=== PATIENT | male | born 1970 | race African-American/Black ===

== ENCOUNTER 2018-02-09 22:32 | Emergency (ER) | payer BC ==
[2018-02-09] MEDS ORDERED: Magnesium Sulfate 2 GM/NS 0.9% 50 ML BAG ONE (23:02)
[2018-02-09 23:51] LABS: Hemoglobin 15.2 g/dL (14.0-18.0); Mean Corpuscular HGB CONC 34.8 g/dL (32.0-36.0); Mean Corpuscular Hemoglobin 29.2 pg (27.0-31.0); Mean Corpuscular Volume 84.1 fL (78.0-98.0); Mean Platelet Volume 8.6 fL (7.4-10.4); Platelet Count 245 thou/uL (130-400); RBC Distribution Width 12.2 % (11.5-14.5); Red Blood Cell (RBC) Count 5.22 mill/uL (4.70-6.10); White Blood Cell (WBC) Count 4.2 thou/uL (4.8-10.8)
[2018-02-10] LABS: Band 1 % (5-11); Eosinophils 5 % (0-10); Lymphocytes 65 % (21-51); MDiff Complete? YES; Monocytes 4 % (0-10); Neutrophil 24 % (42-75)
[2018-02-10 00:39] LABS: Bilirubin Negative (Negative); Blood, Urine Negative (Negative); Clarity Clear (Clear); Glucose, Urine (Dipstick) Negative (Negative); Leukocyte Negative (Negative); Nitrite Negative (Negative); Protein, Urine (Dipstick) Negative (Neg-Trace); Urobilinogen 0.2 mg/dL (0.2-1.0); pH, Urine 6.5 (5.0-9.0)
== END 2018-02-10 01:05 | disposition home or self-care (01) ==
LOC: SCSER 22:32
DX: M62.82 Rhabdomyolysis (principal); I10 Essential (primary) hypertension; Z79.899 Other long term (current) drug therapy
CPT/HCPCS: 81003; 82550; 82565; 84520; 85025; 96365; J3475

== ENCOUNTER 2019-09-10 23:35 | Emergency (ER) | payer BC, OTHER ==
[2019-09-11 00:21] LABS: Hemoglobin 13.8 g/dL (14.0-18.0); Mean Corpuscular HGB CONC 31.9 g/dL (32.0-36.0); Mean Corpuscular Hemoglobin 28.8 pg (27.0-31.0); Mean Corpuscular Volume 90.2 fL (78.0-98.0); Mean Platelet Volume 8.2 fL (7.4-10.4); Platelet Count 290 thou/uL (130-400); RBC Distribution Width 13.4 % (11.5-14.5); Red Blood Cell (RBC) Count 4.78 mill/uL (4.70-6.10); White Blood Cell (WBC) Count 3.7 thou/uL (4.8-10.8)
[2019-09-11 00:35] LABS: ALT (SGPT) 43 U/L (8-55); AST (SGOT) 29 U/L (5-34); Albumin 4.2 g/dL (3.5-5.0); Alkaline Phosphatase 73 U/L (40-110); Anion Gap 9 mmol/L (10-20); BUN (Urea Nitrogen) 10 mg/dL (8.9-20.6); Bilirubin, Total 0.3 mg/dL (0.2-1.2); Calc. Creatinine Clearance 0 mL/min (70-130); Calcium 9.5 mg/dL (7.8-10.44); Carbon Dioxide 30 mmol/L (22-29); Chloride 103 mmol/L (98-107); Estimated GFR-MDRD 85; Globulin 3.4 g/dL (2.4-3.5); Glucose 133 mg/dL (70-105); Lipase 88 U/L (8-78); Potassium 3.9 mmol/L (3.5-5.1); Protein, Total 7.6 g/dL (6.0-8.3); Sodium 138 mmol/L (136-145)
[2019-09-11 00:38] LABS: Eosinophils 3 % (0-10); Lymphocytes 62 % (21-51); MDiff Complete? YES; Monocytes 5 % (0-10); Neutrophil 30 % (42-75); Platelet Morphology Comment Appears Adequate
[2019-09-11] MEDS ORDERED: Ketorolac Tromethamine 30 MG/ML VIAL ONE (01:10)
[2019-09-11] MEDS ORDERED: Dicyclomine 20 MG TAB ONE (01:20)
[2019-09-11] MEDS ORDERED: Dicyclomine 20 MG TAB PO SCH (01:30)
[2019-09-11 02:02] LABS: Bilirubin Negative (Negative); Blood, Urine Negative (Negative); Clarity Clear (Clear); Glucose, Urine (Dipstick) Normal (Negative); Leukocyte Negative Leu/uL (Negative); Nitrite Negative (Negative); Protein, Urine (Dipstick) Negative (Neg-Trace); Urobilinogen Normal mg/dL (Less than 2)
--- NOTE | 2019-09-11 07:40 | CT ---
PRELIMINARY REPORT/[facility]/EMERGENCY AFTER HOURS PROCEDURE: PROCEDURE: CT Scan Abdomen and Pelvis with IV Contrast Material. HISTORY: RIGHT lower quadrant pain. TECHNIQUE: Axial images were performed with multiplanar reconstructions. The patient was given iodin ated contrast intravenously. The patient was not given oral contrast material. COMPARISONS: None . FINDINGS: Clear lung bases. Liver, spleen, adrenals, pancreas show no abnormality. Kidneys show no obstruction or masses. There has been previous cholecystectomy with normal sized biliary tree. No abdominal ascites or pneumoperitoneum. Normal aorta. Mild RIGHT lower quadrant mesenteric lymphaden opathy to 1.6 cm. No bowel obstruction or inflammation and normal appendix RIGHT lower quadrant. Pelvis shows no masses or fluid with normal urinary bladder. No acute bony abnormality. 3 cm lipoma involving external obliquely muscle on the LEFT. IMPRESSION: Normal appendix RIGHT lower quadrant. Mild RIGHT lower quadrant mesenteric lymphadenopathy may represent lymphadenitis. No other significant abnormality identified ELECTRONICALLY SIGNED BY: Noel Morales MD Sep 11, 2019 2:28:18 AM CDT FINAL REPORT EXAM: CT ABDOMEN AND PELVIS HISTORY: Abdominal pain. Pain is sharp and constant. Right lower quadrant pain. COMPARISON: 10/22/2016. Procedure: Multiple contiguous axial images were obtained and a CT of the abdomen and pelvis with IV contrast. C oronal reformats were performed. FINDINGS: Surgically absent gallbladder. Appropriate enhancement of the solid organs. Bilaterally no obstructiv e uropathy. Limited evaluation of the alimentary canal by the absence of oral contrast. No evidence of a small bowel obstruction. Ileocecal junction is unremarkable. Normal caliber air-filled appendix. Mildly enlarged right lower quadrant lymph nodes. [place] lymph node measures 2.0 x 1.0 cm. There does appear to be mucosal thickening involving the cecum and proximal ascending colon. No acute abnormality in the pelvis. IMPRESSION: 1. This report is in agreement with initial report by [facility]. 2. Normal caliber appendix. 3. Enlarged right lower quadrant mesenteric lymph nodes. Correlate for mesenteric lymphadenitis. 4. Nonspecific mucosal prominence involving the cecum and ascending colon. No adjacent inflammatory c hanges. Correlate clinically for possible low-grade colitis. CODE T Transcribed Date/Time: 09/11/2019 7:54 AM
[2019-09-11] MEDS ORDERED: Iopamidol-370 76% 500 ML 1 ML ONE (14:25)
== END 2019-09-11 02:59 | disposition home or self-care (01) ==
LOC: ERS 23:35
DX: I88.0 Nonspecific mesenteric lymphadenitis (principal); I10 Essential (primary) hypertension; Z79.899 Other long term (current) drug therapy
CPT/HCPCS: 36415; 74177; 80053; 81003; 83690; 85025; 96361; 96374; J1885; Q9967

== ENCOUNTER 2020-03-05 15:35 | Emergency (ER) | payer OTHER ==
[2020-03-06 13:25] LABS: SARS-CoV-2 MS2 Positive; SARS-CoV-2 N Gene Negative; SARS-CoV-2 S Gene Negative; SARS-CoV-2 by NAA Not Detected (NotDetected); SARS-CoV-2 orf1ab Negative
== END 2020-03-05 15:54 | disposition home or self-care (01) ==
LOC: ERS 15:35
DX: Z20.828 Contact with and (suspected) exposure to other viral communicable diseases (principal); I10 Essential (primary) hypertension
CPT/HCPCS: 87635; 99283; U0003

== ENCOUNTER 2021-01-23 07:56 | Emergency (ER) | payer OTHER ==
[2021-01-23 08:38] LABS: #Eosinphils 0.1 thou/uL (0.0-0.7); #Lymphocytes 1.2 thou/uL (1.20-3.40); #Monocytes 0.6 thou/uL (0.11-0.59); #Neutrophils 3.6 thou/uL (1.40-6.50); %Eosinophils 2.7 % (0.0-10.0); %Lymphocytes 21.7 % (21.0-51.0); %Monocytes 10.5 % (0.0-10.0); %Neutrophils 65.2 % (42.0-75.0); Hemoglobin 14.4 g/dL (14.0-18.0); Mean Corpuscular HGB CONC 33.1 g/dL (32.0-36.0); Mean Corpuscular Hemoglobin 30.1 pg (27.0-31.0); Mean Platelet Volume 8.4 fL (7.4-10.4); Platelet Count 196 thou/uL (130-400); RBC Distribution Width 13.1 % (11.5-14.5); Red Blood Cell (RBC) Count 4.77 mill/uL (4.70-6.10); White Blood Cell (WBC) Count 5.5 thou/uL (4.8-10.8)
[2021-01-23] MEDS ORDERED: Acetaminophen 500 MG TAB ONE (08:47)
[2021-01-23] MEDS ORDERED: Ondansetron ODT 4 MG TAB ONE (08:47)
[2021-01-23] MEDS ORDERED: Ketorolac Tromethamine 30 MG/ML VIAL ONE (08:47)
[2021-01-23 09:03] LABS: ALT (SGPT) 33 U/L (8-55); AST (SGOT) 25 U/L (5-34); Alkaline Phosphatase 74 U/L (40-110); Anion Gap 12 mmol/L (10-20); BUN (Urea Nitrogen) 10 mg/dL (8.9-20.6); Bilirubin, Total 0.5 mg/dL (0.2-1.2); Calc. Creatinine Clearance 0 mL/min (70-130); Calcium 9.1 mg/dL (7.8-10.44); Carbon Dioxide 26 mmol/L (22-29); Chloride 104 mmol/L (98-107); Globulin 3.3 g/dL (2.4-3.5); Glucose 126 mg/dL (70-105); Lipase 18 U/L (8-78); Potassium 4.3 mmol/L (3.5-5.1); Protein, Total 7.3 g/dL (6.0-8.3); Sodium 138 mmol/L (136-145)
[2021-01-23 10:17] LABS: SARS-CoV-2 NAA Rapid Test Not Detected (NotDetected)
== END 2021-01-23 11:10 | disposition home or self-care (01) ==
LOC: ERS 07:56
DX: R07.9 Chest pain, unspecified (principal); R50.9 Fever, unspecified; R05 Cough; I10 Essential (primary) hypertension; Z20.822 Contact with and (suspected) exposure to COVID-19; Z79.899 Other long term (current) drug therapy
CPT/HCPCS: 0240U; 36415; 71045; 80053; 83690; 84484; 85025; 93005; 96372; J1885; Q0162

== ENCOUNTER 2021-04-22 08:01 | Outpatient (CLI) | payer OTHER ==
[2021-04-22] MEDS ORDERED: Iopamidol-370 76% 500 ML 1 ML ONE (09:31)
== END 2021-04-22 08:02 | disposition home or self-care (01) ==
LOC: BICCT 08:01
DX: R10.9 Unspecified abdominal pain (principal); R91.8 Other nonspecific abnormal finding of lung field
CPT/HCPCS: 74177; Q9967